=== PATIENT | male | born 1975 | race Caucasian/White ===

== ENCOUNTER 2019-10-26 08:00 | Day surgery (SDC) | payer OTHER, SELFPAY ==
[2019-10-26] VITALS (7 sets, daily range): BP systolic 109–132; BP diastolic 76–92; PULSE 70–91; RESP 16–18; TEMP 36.6–36.8; O2SAT 96–99; BMI 23.7
--- NOTE | 2019-10-26 08:13 | ED.DCSUM_ITS ---
History of Present Illness Chief Complaint: Foreign Body Narrative: Patient is a 44-year-old male who presents with chief complaint of I have a piece of steak stuck in my throat. He does have a history of esophageal impaction requiring upper endoscopy 4 years ago. He was eating steak last night and is felt like something is stuck since that time. If he tries to drink anything he regurgitates this. He did try running as well as drinking a carbonated beverage and jumping up and down. This is been unsuccessful. He denies any pain. No recent illness. No fevers cough congestion rhinorrhea sore throat or diarrhea. Past Medical History - Allergies and Home Meds Allergies/Adverse Reactions: Allergies No Known Allergies Allergy (Verified 10/26/19 08:01) Primary Care Physician: Care Physician,No Primary [Primary Care Provider] - Past Medical History: None Smoking Status: Never smoker Review of Systems All systems negative except as indicated General: Denies: Fever Eyes: Denies: Visual changes - bilaterally ENT: Denies: Bilateral ear pain Cardiovascular: Denies: Chest pain Respiratory: Denies: Dyspnea Gastrointestinal: Reports: Vomiting. Denies: Diarrhea Musculoskeletal: Denies: Myalgias, Arthralgias Skin: Denies: Rash Neurological: Denies: Headache Physical Exam Vital Signs/Narrative: Vital Signs Temp Pulse Resp BP Pulse Ox 10/26/19 08:03 97.8 F 91 18 132/92 H 97 Inital Vital Signs reviewed: Yes General: Well nourished Head: Normocephalic Eyes: EOMI ENT: Moist mucous membranes Neck: Supple Cardiovascular: Regular rate, Regular rhythm Respiratory: No distress, CTA bilaterally Abdomen: Soft Skin: Normal color Neurological: Alert Psychological: Normal affect Diagnostic/Tx/Re-eval - Medical Decision Making Patient was given IV glucagon and Zofran without success. Patient has previously seen by Dr. Pachceo however he is no longer practicing at [facility]. I spoke to Dr. Small who will take the patient to endoscopy for further management. ED Disposition - Plan for ED Patient: Diagnosis: Esophageal obstruction due to food impaction Referrals: Care Physician,No Primary [Primary Care Provider] -
[2019-10-26] MEDS: Glucagon 1 MG/ML Syringe IV (08:26)
[2019-10-26] MEDS: Ondansetron 4 MG/2 ML Vial IV (08:26)
--- NOTE | 2019-10-26 10:10 | HP.PCM_ITS ---
Problem List (1) Esophageal obstruction due to food impaction Status: Acute History of Present Illness Date of Admission: 10/26/19 The patient is a 44 year old M reports that he was eating steak for dinner last night and this got stuck. He says it is still stuck today. He has not been able to control his secretions and he has been spitting out all of his saliva. This has happened in the past few years ago Dr. Trimble performed an EGD and pushed chicken through. Patient reports he is not on a PPI at home. Past Medical History Allergies No Known Allergies Allergy (Verified 10/26/19 08:01) Home Medications: Ambulatory Orders Medication Instructions Recorded No Known/Unobtainable [No Known 09/17/15 Home Medications] Surgical History: no surgical history Smoking Status: Never smoker - *Family History Maternal History Items: No pertinent history Review of Systems Constitutional: Denies: Anorexia, Fever HEENT: Reports: Difficulty Swallowing Respiratory: Denies: Cough Gastrointestinal: Denies: Abdominal Pain, Hematochezia, Nausea, Vomiting Genitourinary: Denies: Dysuria Neurological: Denies: Balance problems Psychiatric: Denies: Anxiety Hematologic/ Lymphatic: Denies: Adenopathy VTE Information - Inpt Only VTE Present on Admission: No VTE Mechan Device Prophylaxis: SCD's Patient Problems: Active and Suspected Problems Esophageal obstruction due to food impaction (Acute) - Physical Exam Vitals/I&O's: Vital Signs Temp Pulse Resp BP Pulse Ox 97.8 F 91 18 132/92 H 97 10/26/19 08:03 10/26/19 08:03 10/26/19 08:03 10/26/19 08:03 10/26/19 08:03 Oxygen Delivery Method Room Air Weight: 170 lb Body Mass Index (BMI) 23.7 General: Alert, Oriented x3 Neck: No JVD Lungs: Normal air movement Cardiovascular: Regular rate, Regular Rhythm Abdomen: Soft, Non Tender, Non-Distended Assessment/Plan All Active Problems Esophageal obstruction due to food impaction (Acute) 44-year-old male with food impaction of the esophagus 1. Patient has food impacted in the esophagus and will be taken for EGD to clear the impaction. I recommended that the patient go home on a PPI. I also recommended soft foods for the next 48 hours. 2. I explained endoscopy in detail to the patient. I explained the risks including but not limited to stroke or heart attack with anesthesia, perforation of the GI tract, bleeding, infection. I explained that any of these could necessitate further emergency surgery. The patient understands and all questions were answered sufficiently. The patient wishes to proceed with procedure. Stas Small MD Pager: [facility] [address] [place] [address], [address] [place] [address] Office: Essential Procedure Criteria Procedure Essential: Yes Criteria Note: On 10/12/2019 the [facility] ([facility]) Public Order signed by [facility] Director Nahed Dixon M.D., regarding the Management of Non-Essentia l Surgeries and Procedures for the purpose of preserving Personal Protective Equipment (PPE) and critical hospital capacity and resources within [place] went into effect as of 10/13/2019 at 5:00PM. According to the [facility] Public Order: This action will remain in full force and effect until the State of Emergency declared by the Governor no longer exists or the Director of the [facility] rescinds or modifies this Order.. This [facility] order stated all non-essential or elective surgeries and procedures that utilize PPE should be delayed unless there is undue risk to the current or future health of a patient. After reviewing the aforementioned [facility] Public Order and the patients clinical case, I have determined that the scheduled procedure meets the criteria to go forward. Risk to Patient if Procedure Delayed: Risk of rapidly worsening to severe symptoms - Patient has food infection of the esophagus which is not been cleared with non-invasive methods
--- NOTE | 2019-10-26 10:58 | OP.EGD_ITS ---
Patient Name: Nasir Hobson Procedure Date: 10/26/2019 10:09 AM Date of : 1975 Age: 44 Procedure: Upper GI endoscopy Indications: Foreign body in the esophagus Providers: Stas Small MD Medicines: Monitored Anesthesia Care Patient Profile: This is a 44 year old male. Refer to note in patient chart for documentation of history and physical. Complications: No immediate complications. Estimated blood loss: Minimal. Procedure: Pre-Anesthesia Assessment: - Prior to the procedure, a History and Physical was performed, and patient medications and allergies were reviewed. The patient's tolerance of previous anesthesia was also reviewed. The risks and benefits of the procedure and the sedation options and risks were discussed with the patient. All questions were answered, and informed consent was obtained. Prior Anticoagulants: The patient has taken no previous anticoagulant or antiplatelet agents. After reviewing the risks and benefits, the patient was deemed in satisfactory condition to undergo the procedure. After obtaining informed consent, the endoscope was passed under direct vision. Throughout the procedure, the patient's blood pressure, pulse, and oxygen saturations were monitored continuously. The gastroscope was introduced through the mouth, and advanced to the second part of duodenum. The upper GI endoscopy was accomplished without difficulty. The patient tolerated the procedure well. Scope In: 10:49:08 AM Scope Out: 10:49:45 AM Total Procedure Duration Time 0 hours 0 minutes 37 seconds Findings: Food was found at the gastroesophageal junction. Removal was accomplished with a {skip} . Impression: - Food was found in the esophagus. Removal was successful. Food bolus was advanced into stomach. Recommendation: - Discharge patient to home. - Soft diet for 2 days. - Use Prilosec (omeprazole) 20 mg PO daily. - Continue present medications. Procedure Code(s): --- Professional --- 06216, Esophagogastroduodenoscopy, flexible, transoral; with removal of foreign body(s) Diagnosis Code(s): --- Professional --- T18.128A, Food in esophagus causing other injury, initial encounter T18.108A, Unspecified foreign body in esophagus causing other injury, initial encounter CPT copyright 2017 [employer]. All rights reserved. The codes documented in this report are preliminary and upon whiting can worker review may be revised to meet current compliance requirements. Stas Small MD 10/26/2019 10:57:29 AM This report has been signed electronically. Number of Addenda: 0 Note Initiated On: 10/26/2019 10:09 AM
--- NOTE | 2019-10-26 10:58 | OP.CCLET_ITS ---
10/26/2019 No Primary Care Physician Re : Upper GI endoscopy procedure for Nasir Hobson Dear Care Physician This procedure was performed on Saturday, October 26, 2019. My impressions and recommendations are as follows: Impressions : - Food was found in the esophagus. Removal was successful. Food bolus was advanced into stomach. Recommendations : - Discharge patient to home. - Soft diet for 2 days. - Use Prilosec (omeprazole) 20 mg PO daily. - Continue present medications. My findings are described in the full procedure note, which is enclosed. If I can be of further assistance, please feel free to contact me at Doctor phone number(s): , Work: . Sincerely, Stas Small MD 10/26/2019 10:57:29 AM This report has been signed electronically.
== END 2019-10-26 11:43 | disposition home or self-care (01) ==
LOC: ED 08:33 → SDC 09:33 → AC 09:47
PROVIDERS: Emergency Provider Emergency Medicine; Visit Provider Surgery
PROC: 0DJ08ZZ Inspection of Upper Intestinal Tract, Via Natural or Artificial Opening Endoscopic (ICD-10-PCS; CPT 43235; principal; 2019-10-26 10:55)
DX: T18.128A Food in esophagus causing other injury, initial encounter (principal); K22.2 Esophageal obstruction; X58.XXXA Exposure to other specified factors, initial encounter; Y93.9 Activity, unspecified; Y92.9 Unspecified place or not applicable
CPT/HCPCS: 43247; 99283; J7120; A4216; J1610; J2405